=== PATIENT | male | born 1965 | race Caucasian/White ===

== ENCOUNTER → 2016-11-15 | Outpatient (CLI) | payer BC ==
[~2016-11-15] MED LIST: PERCOCET 325 MG1 TA2 PO; ULTRAM 50MG TAB50 MG PO
== END ==
LOC: COL.RAD 13:58
DX: M79.652 Pain in left thigh (principal)

== ENCOUNTER → 2017-09-07 | Outpatient (CLI) | payer BC ==
[2017-09-07 12:12] LABS: BASO % 0.6 % (0.0-2.0); EOS # 0.2 (0.0-0.7); EOS % 3.2 % (0-4.0); GRAN # 4.2 (1.4-6.5); GRAN % 58.2 % (42.2-75.2); HEMATOCRIT 47.7 % (42.0-52.0); HEMOGLOBIN 16.9 g/dl (13.5-18.0); LYMPH # 1.9 (1.2-3.4); LYMPH % 26.9 % (20.0-51.0); MEAN CELL VOLUME 91 fl (80.0-100.0); MEAN CORPUSCULAR HEMOGLOBIN 32 pg (27.0-31.0); MEAN CORPUSCULAR HGB CONC 35 g/dl (33.0-37.0); MEAN PLATELET VOLUME 9.4 fl (7.4-10.4); MONO # 0.8 (0.1-0.6); MONO % 10.8 % (1.7-9.3); PLATELET COUNT 326 K/mm3 (130-400); RED BLOOD COUNT 5.27 M/mm3 (4.20-5.60); REDCELL DISTRIBUTION WIDTH-CV 11.9 % (11.5-14.5)
[2017-09-07 12:23] LABS: ALBUMIN 4.8 gm/dL (3.5-5.0); BILIRUBIN,TOTAL 1.1 mg/dL (0.0-1.0); CREATININE, serum 0.97 mg/dL (0.66-1.25); POTASSIUM 4.6 mmol/L (3.4-5.0); TOTAL PROTEIN 7.8 gm/dL (6.4-8.2)
[2017-09-07 12:51] LABS: THYROID STIMULATING HORMONE 4.76 uIU/mL (0.465-4.680)
== END ==
LOC: COL.RAD 10:59
PROVIDERS: Internal Medicine
DX: M79.661 Pain in right lower leg (principal); I48.91 Unspecified atrial fibrillation

== ENCOUNTER → 2017-09-11 | Outpatient (CLI) | payer BC | LOC: COL.VAS 08:45 | DX: I08.1 Rheumatic disorders of both mitral and tricuspid valves (principal) ==

== ENCOUNTER 2018-07-03 12:20 | Inpatient (IN) | payer BC ==
[~2018-07-03] VITALS: Ht 185.4 cm; Wt 84.0 kg
[2018-07-24 09:44] VITALS: BP 125/86; PULSE 58; TEMP 98.8
[2018-07-24 09:52] LABS: BASO # 0.1 (0.0-0.2); BASO % 1.4 % (0.0-2.0); EOS # 0.3 (0.0-0.7); EOS % 6.6 % (0-4.0); GRAN # 2.3 (1.4-6.5); GRAN % 52.4 % (42.2-75.2); HEMATOCRIT 43.7 % (42.0-52.0); HEMOGLOBIN 15.4 g/dl (13.5-18.0); LYMPH # 1.3 (1.2-3.4); MEAN CELL VOLUME 89 fl (80.0-100.0); MEAN CORPUSCULAR HEMOGLOBIN 31 pg (27.0-31.0); MEAN CORPUSCULAR HGB CONC 35 g/dl (33.0-37.0); MEAN PLATELET VOLUME 9.6 fl (7.4-10.4); MONO # 0.5 (0.1-0.6); MONO % 10.4 % (1.7-9.3); PLATELET COUNT 267 K/mm3 (130-400); RED BLOOD COUNT 4.92 M/mm3 (4.20-5.60)
[2018-07-24 09:59] LABS: PROTHROMBIN TIME 11.8 SECONDS (9.7-12.8)
--- NOTE | 2018-07-24 10:00 | NUR ---
Admission assessment completed, alert/oriented, vital signs stable / slightly bradycardi, placed on Tele and showing Sinus James., denies any chest pain or discomfort, home meds/allergies/pharmacy reviewed, IV started in left wrist, notified of his arrival, EKG done, labs ordered, order to give Sotalol 80mg if creatnine is less than 2.0, present at bedside, he denies needs at this time, will continue to monitor
[2018-07-24 10:02] LABS: ALBUMIN 4.2 gm/dL (3.5-5.0); BILIRUBIN,TOTAL 0.8 mg/dL (0.0-1.0); CALCIUM 9.4 mg/dL (8.4-10.2); CREATININE, serum 1.04 mg/dL (0.66-1.25); MAGNESIUM 2.1 mg/dL (1.6-2.3); POTASSIUM 4.9 mmol/L (3.4-5.0); TOTAL PROTEIN 7.1 gm/dL (6.4-8.2)
[2018-07-24] MEDS ORDERED: ASPIRIN 32325 MG/TAB PO (10:47)
[2018-07-24 11:07] VITALS: BP 127/69; PULSE 44; TEMP 97.6
[2018-07-24 16:18] VITALS: BP 119/81; PULSE 88; TEMP 97.3
--- NOTE | 2018-07-24 20:30 | NUR ---
Initial shift assessment done- denies pain, denies chest pain/SOB,, Up in room/corbin- Tele on-remains blane -in the 40,s, Doctor aware today and decreased tonights dose of sotalol. No requests- given some crackers as a snack-
[2018-07-24 20:31] VITALS: BP 123/87; PULSE 51; TEMP 97.2
[2018-07-24 23:52] VITALS: BP 120/83; PULSE 51; TEMP 97.4
[2018-07-25 03:08] VITALS: BP 120/78; PULSE 49; TEMP 97.6
--- NOTE | 2018-07-25 06:09 | NUR ---
Quiet night- no requests, Tele on- HR low 40,s all night-B/P stable, denies pain
[2018-07-25 06:41] LABS: BASO % 0.8 % (0.0-2.0); EOS # 0.3 (0.0-0.7); EOS % 6.6 % (0-4.0); GRAN # 2.4 (1.4-6.5); GRAN % 48.5 % (42.2-75.2); HEMATOCRIT 46.1 % (42.0-52.0); HEMOGLOBIN 15.7 g/dl (13.5-18.0); LYMPH # 1.5 (1.2-3.4); LYMPH % 29.6 % (20.0-51.0); MEAN CELL VOLUME 90 fl (80.0-100.0); MEAN CORPUSCULAR HEMOGLOBIN 31 pg (27.0-31.0); MEAN CORPUSCULAR HGB CONC 34 g/dl (33.0-37.0); MEAN PLATELET VOLUME 9.7 fl (7.4-10.4); MONO # 0.7 (0.1-0.6); MONO % 14.3 % (1.7-9.3); PLATELET COUNT 270 K/mm3 (130-400); RED BLOOD COUNT 5.11 M/mm3 (4.20-5.60); REDCELL DISTRIBUTION WIDTH-CV 12.2 % (11.5-14.5)
[2018-07-25 06:57] LABS: CALCIUM 9.5 mg/dL (8.4-10.2); CREATININE, serum 1.03 mg/dL (0.66-1.25); POTASSIUM 4.5 mmol/L (3.4-5.0)
--- NOTE | 2018-07-25 07:45 | NUR ---
Sitting up in the bed at the time of assessment. No pain or needs reported. The call light is in place. No chest pain or cardiac changes throughout the night. The call light is in place. The patient was encouraged to ambulate the halls.
[2018-07-25 08:31] VITALS: BP 108/70; PULSE 44; TEMP 97.6
--- NOTE | 2018-07-25 09:45 | NUR ---
SW met with the patient to discuss discharge plan. The patient lives in [place] with his , Ann-Marie. He reports independence with ADLs and does not use any DME. The patient's PCP is Dr. Luiza Garcia and he receives his medication at the [facility]. He reports no difficulties obtaining his meds. The patient does not have advanced directives in EMR, but he states that he does have them completed. The patient plans to return home with his upon discharge. No additional needs at this time.
--- NOTE | 2018-07-25 11:26 | NUR ---
Up ambulating the halls at this time. No pain or needs reported. Telemetry rate 40 bpm, NSR. Will continue to monitor.
[2018-07-25 11:58] VITALS: BP 113/67; PULSE 43; TEMP 98.2
[2018-07-25 15:32] VITALS: BP 115/77; PULSE 39; TEMP 97.7
[2018-07-25 19:01] VITALS: BP 115/70; PULSE 45; TEMP 97.5
--- NOTE | 2018-07-25 19:05 | NUR ---
No change throughout the shift. Plan to discharge tomorrow.
--- NOTE | 2018-07-25 20:00 | NUR ---
PT WATCHING TV. RESTING IN BED. FAMILY AT BEDSIDE. TELE REVEALS SR. DENIES ANY COMPLAINTS.
[2018-07-25 23:28] VITALS: BP 116/70; PULSE 49; TEMP 97.4
[2018-07-26 04:16] VITALS: BP 114/78; PULSE 52
[2018-07-26 06:15] LABS: BASO % 0.9 % (0.0-2.0); EOS # 0.3 (0.0-0.7); EOS % 6.2 % (0-4.0); GRAN # 2.2 (1.4-6.5); GRAN % 45.9 % (42.2-75.2); HEMATOCRIT 44.7 % (42.0-52.0); HEMOGLOBIN 16.7 g/dl (13.5-18.0); LYMPH # 1.4 (1.2-3.4); LYMPH % 29.9 % (20.0-51.0); MEAN CELL VOLUME 89 fl (80.0-100.0); MEAN CORPUSCULAR HEMOGLOBIN 33 pg (27.0-31.0); MEAN CORPUSCULAR HGB CONC 37 g/dl (33.0-37.0); MONO # 0.8 (0.1-0.6); MONO % 16.9 % (1.7-9.3); PLATELET COUNT 303 K/mm3 (130-400); RED BLOOD COUNT 5.05 M/mm3 (4.20-5.60); REDCELL DISTRIBUTION WIDTH-CV 12.2 % (11.5-14.5)
[2018-07-26 06:24] LABS: CALCIUM 9.1 mg/dL (8.4-10.2); CREATININE, serum 1.06 mg/dL (0.66-1.25); MAGNESIUM 2.1 mg/dL (1.6-2.3); POTASSIUM 4.1 mmol/L (3.4-5.0)
--- NOTE | 2018-07-26 06:25 | NUR ---
PT HAS SLEPT WLL THROUGH THE NIGHT. TELE REVEALS SR. UNEVENTFUL NIGHT.
--- NOTE | 2018-07-26 07:00 | NUR ---
Report received from DEANNE Erickson. Pt in bed resting, feels well, anticipating discharge, will conitnue to monitor.
[2018-07-26 07:49] VITALS: BP 117/62; PULSE 54; TEMP 97.4
[2018-07-26] MEDS ORDERED: BETAPACE 80MG80 MG PO (09:13)
[2018-07-26] MEDS ORDERED: ASPIRIN 81M81 MG/TA2 PO (09:15)
--- NOTE | 2018-07-26 09:25 | NUR ---
Assessment charted. Pt doing well. Feels fine, denies pain. Ready to leave when cardiology ok's. Will continue to monitor.
--- NOTE | 2018-07-26 11:10 | NUR ---
Discharge teaching completed at this time. Discharged packet reviewed, f/u appointmetns reviewed, scripts sent to pharmacy. Pt doing well. INT dc'd, tip intact. Pt escorted out by myself with all belongings, criteria met.
== END 2018-07-26 12:08 | disposition home or self-care (01) | DRG 310 ==
LOC: MEDICAL 07-24 09:00
PROVIDERS: ADMIT Internal Medicine Cardiovascular Disease
DX: I48.0 Paroxysmal atrial fibrillation (principal); Z51.81 Encounter for therapeutic drug level monitoring

== ENCOUNTER 2019-12-06 15:23 | Emergency (ER) | payer BC ==
[~2019-12-06] VITALS: Ht 185.4 cm; Wt 84.1 kg
[~2019-12-06 15:23] MED LIST changes: +ASPIRIN 32325 MG/TAB PO; +ASPIRIN 81M81 MG/TA2 PO; +BETAPACE 80MG80 MG PO
[2019-12-06 15:31] VITALS: BP 135/98
[2019-12-06] MEDS ORDERED: CEPHALEXIN500 M1 PO (17:09)
[2019-12-06] MEDS ORDERED: NORCO 325 MG-51 TAB PO (17:09)
[2019-12-06 17:27] VITALS: PULSE 66
== END 2019-12-06 17:27 | disposition home or self-care (01) ==
LOC: COL.ER 15:23
DX: S81.812A Laceration without foreign body, left lower leg, initial encounter (principal); Z79.82 Long term (current) use of aspirin; V80.010A Animal-rider injured by fall from or being thrown from horse in noncollision accident, initial encounter
CPT/HCPCS: J0690; J2250; J2405; J3010; J7030

== ENCOUNTER → 2019-12-18 | Outpatient (CLI) | payer BC ==
[~2019-12-18] MED LIST changes: +CEPHALEXIN500 M1 PO; +NORCO 325 MG-51 TAB PO
[2019-12-18 07:05] VITALS: BP 129/96; PULSE 67; TEMP 98.7
== END ==
LOC: COL.ER 07:01
DX: Z48.02 Encounter for removal of sutures (principal)

== ENCOUNTER → 2020-01-05 | Outpatient (CLI) | payer BC | LOC: COL.RAD 13:30 | DX: T79.2XXA Traumatic secondary and recurrent hemorrhage and seroma, initial encounter (principal) ==